=== PATIENT | male | born 1965 | race Caucasian/White ===

== ENCOUNTER 2021-03-30 14:15 | Emergency (ER) | payer OTHER, SELFPAY ==
[2021-03-30 14:21] VITALS: BP 229/99; PULSE 92; RESP 16; TEMP 36.9; O2SAT 96; BMI 29.2
--- NOTE | 2021-03-30 14:34 | ECG_ITS ---
Test Reason : HYPERTENSION Blood Pressure : / mmHG Vent. Rate : 074 BPM Atrial Rate : 074 BPM P-R Int : 146 ms QRS Dur : 096 ms QT Int : 400 ms P-R-T Axes : 067 039 040 degrees QTc Int : 444 ms Normal sinus rhythm Normal ECG No previous ECGs available Referred By: Generic ED Physician Electronically Signed By:Guru Cunha
[2021-03-30 18:41] VITALS: BP 230/97; PULSE 80
--- NOTE | 2021-03-30 19:03 | ED.GENADULT ---
HPI - General Adult General Chief complaint: General Medical Stated complaint: high bp Time Seen by Provider: 03/30/21 19:03 Source: patient Mode of arrival: ambulatory Limitations: no limitations History of Present Illness HPI narrative: Patient history of hypertension not taking med any medication for last 3 years was seen at the urgent care for back pain noticed to have high blood pressure on arrival patient's blood pressure was 229/99 patient denies any headache no chest pain or shortness of breath feels fine otherwise Related Data Previous Rx's Medication Instructions Recorded lisinopril-hydrochlorothiazide 1 tab PO DAILY #30 tab 03/30/21 Allergies Allergy/AdvReac Type Severity Reaction Status Date / Time No Known Allergies Allergy Verified 03/30/21 14:23 Review of Systems Review of Systems: Yes all other systems are reviewed and are negative [facility] Past Medical History Medical History HTN (hypertension) Social History Social History Advance Directives: No Advance Directives Information Provided: Yes Physical Exam Vital Signs: Vital Signs: Last Vital Signs Temp 98.4 F 03/30/21 14:21 Pulse 72 03/30/21 20:47 Resp 16 03/30/21 20:47 BP 180/88 H 03/30/21 20:47 Pulse Ox 99 03/30/21 20:47 Body Mass Index 29.2 Appearance: Alert. Oriented X3. No acute distress. Eyes: PERRLA, No Nystagmus ENT: Pharynx normal. Oral Mucosa moist Neck: Normal inspection. Neck supple. CVS: Normal heart rate and rhythm. Pulses normal. Respiratory: No respiratory distress. Equal air entry bilateral, no wheezing/rales/rhonchi Abdomen: Soft and nontender. Bowel sounds are present, no mass palpable, no CVA tenderness Skin: Skin warm and dry. Normal skin color. Normal skin turgor. Extremities: No lower extremity edema. No calf tenderness Neuro: Oriented X 3. No motor deficit. No sensory deficit.No cerebellar signs , cranial nerves II-XII intact Medical Decision Making MDM Narrative Medical decision making narrative: Patient with history of hypertension not taking medication for last 3 years blood pressure improved to 180/88 after lisinopril discharge patient home advised to follow-up with PCP patient does not have any end-organ damage clinically and labs are stable Lab Data Lab results reviewed: Yes I reviewed the patient's lab results. Result diagrams: 03/30/21 19:23 03/30/21 19:23 Labs: Lab Results 03/30/21 03/30/21 03/30/21 Range/Units 19:23 19:23 19:23 WBC 12.6 H (4.8-10.8) X10*3/uL RBC 4.56 L (4.60-5.80) X10*6/uL Hgb 15.8 (14.0-18.0) g/dl Hct 43.1 (42-52) % MCV 94.5 (80-98) fL MCH 34.6 H (27.0-33.0) pg MCHC 36.7 H (31.0-36.0) g/dl RDW 11.9 (11.0-16.0) % Plt Count 231 (160-400) X10*3/uL MPV 9.6 (9.4-12.4) fL Immature Gran % (Auto) 0.7 H (0.0-0.4) % Neut % (Auto) 74.1 H (45-73) % Lymph % (Auto) 18.6 L (20-40) % [place] % (Auto) 4.5 (2-11) % Eos % (Auto) 1.6 (0-4) % Baso % (Auto) 0.5 (0-2) % Lymph # (Auto) 2.3 (1.2-4.9) X10*3/uL [place] # (Auto) 0.6 (0.1-1.2) X10*3/uL Eos # (Auto) 0.2 (0.0-0.4) X10*3/uL Baso # (Auto) 0.1 (0.0-0.2) X10*3/uL Abs Immat Gran (auto) 0.09 H (0.00-0.03) X10*3/uL Absolute Neuts (auto) 9.3 H (2.0-8.3) X10*3/uL Absolute Nucleated RBC 0.000 (0.0-0.012) X10*3/uL Nucleated RBC % (auto) 0.0 (0.0-0.2) /100WBC Sodium 142 (135-145) mmol/L Potassium 4.0 (3.3-5.1) mmol/L Chloride 104 (96-108) mmol/L Carbon Dioxide 28 (22-29) mmol/L Anion Gap 14 (12-20) BUN 8 L (9-16) mg/dL Creatinine 0.99 (0.5-1.4) mg/dL Estim Creat Clear Calc 78.2 Estimated GFR > 60 Random Glucose 83 (60-115) mg/dL Calcium 9.3 (8.4-10.2) mg/dL Urine Color YELLOW Urine Appearance CLEAR Urine pH 6.5 (5.0-8.0) Ur Specific [place] 1.015 (1.005-1.025) Urine Protein NEG (NEG-TRACE) MG/DL Urine Glucose (UA) NEG (NEG) MG/DL Urine Ketones NEG (NEG) MG/DL Urine Blood NEG (NEG) Urine Nitrite NEG (NEG) Ur Leukocyte Esterase NEG (NEG) Discharge Plan Discharge Clinical Impression: Benign essential hypertension Patient Disposition: Home, Self-Care Instructions: Hypertension (ED) Additional Instructions: Take medication as prescribed Check blood pressure daily should be less than 140/90. Decrease salt intake and follow with PCP Prescriptions: New lisinopril-hydrochlorothiazide 20-12.5 mg tablet 1 tab PO DAILY Qty: 30 RF: 3 Referrals: Tu Christianson MD [Physician] - 1 week (htn) Interventions: ED Discharge Assessment Last Done: 03/30/21 20:47 Discharge Date/Time: 03/30/21 21:05
[2021-03-30 19:14] VITALS: BP 207/98; PULSE 77
[2021-03-30] MEDS: lisinopriL 20 MG TABLET PO (19:14)
[2021-03-30 19:30] LABS: MANUAL DIFF FLAG NO
[2021-03-30 19:37] LABS: Basophils Absolute Auto 0.1 X10*3/uL (0.0-0.2); Basophils Percent Auto 0.5 % (0-2); Eosinophils Absolute Auto 0.2 X10*3/uL (0.0-0.4); Eosinophils Percent Auto 1.6 % (0-4); Hematocrit 43.1 % (42-52); Hemoglobin 15.8 g/dl (14.0-18.0); Imm Gran Abs Auto 0.09 X10*3/uL (0.00-0.03); Imm Gran Pct Auto 0.7 % (0.0-0.4); Lymphocytes Absolute Auto 2.3 X10*3/uL (1.2-4.9); Lymphocytes Percent Auto 18.6 % (20-40); Mean Corpuscular HGB Conc 36.7 g/dl (31.0-36.0); Mean Corpuscular Hemoglobin 34.6 pg (27.0-33.0); Mean Corpuscular Volume 94.5 fL (80-98); Mean Platelet Volume 9.6 fL (9.4-12.4); Monocytes Absolute Auto 0.6 X10*3/uL (0.1-1.2); Monocytes Percent Auto 4.5 % (2-11); Neutrophils Absolute Auto 9.3 X10*3/uL (2.0-8.3); Neutrophils Percent Auto 74.1 % (45-73); Platelet Count 231 X10*3/uL (160-400); Red Blood Count 4.56 X10*6/uL (4.60-5.80); Red Cell Distribution Width 11.9 % (11.0-16.0); White Blood Count 12.6 X10*3/uL (4.8-10.8)
[2021-03-30 19:39] LABS: Glucose Urine UA NEG (NEG); Leukocyte Esterase Urine NEG (NEG); Nitrite Urine NEG (NEG); PH 6.5 (5.0-8.0); Specific Gravity - Urine 1.015 (1.005-1.025); Urine Blood NEG (NEG); Urine Ketones NEG (NEG); Urine Protein NEG (NEG-TRACE)
[2021-03-30 19:40] LABS: Appearance Urine CLEAR; Color Urine YELLOW
[2021-03-30 19:57] LABS: Anion Gap 14 (12-20); Blood Urea Nitrogen 8 mg/dL (9-16); Calcium 9.3 mg/dL (8.4-10.2); Carbon Dioxide 28 mmol/L (22-29); Chloride 104 mmol/L (96-108); Creatinine Clr Calc Pharmacy 78.2; Estimated Glomerular Filt Rate > 60; Glucose Random 83 mg/dL (60-115); Sodium 142 mmol/L (135-145)
[2021-03-30 20:47] VITALS: BP 180/88; PULSE 72; RESP 16; O2SAT 99
== END 2021-03-30 21:05 | disposition home or self-care (01) ==
PROVIDERS: Emergency Provider Internal Medicine
DX: I10 Essential (primary) hypertension (principal); Z91.14 Patient's other noncompliance with medication regimen
CPT/HCPCS: 36415; 80048; 81003; 85025; 93005; 99283; 99284

== ENCOUNTER 2024-01-20 06:32 | Outpatient (REF) | payer BC, SELFPAY ==
[2024-01-20 10:32] LABS: MANUAL DIFF FLAG NO
[2024-01-20 10:41] LABS: Basophils Absolute Auto 0.1 X10*3/uL (0.0-0.2); Basophils Percent Auto 0.7 % (0-2); Eosinophils Absolute Auto 0.2 X10*3/uL (0.0-0.4); Eosinophils Percent Auto 2.3 % (0-4); Hematocrit 49.3 % (42.0-52.0); Hemoglobin 17.4 g/dl (14.0-18.0); Imm Gran Abs Auto 0.05 X10*3/uL (0.00-0.03); Imm Gran Pct Auto 0.5 % (0.0-0.4); Lymphocytes Absolute Auto 2.3 X10*3/uL (1.2-4.9); Lymphocytes Percent Auto 22.3 % (20-40); Mean Corpuscular HGB Conc 35.3 g/dl (31.0-36.0); Mean Corpuscular Hemoglobin 34.2 pg (27.0-33.0); Mean Corpuscular Volume 96.9 fL (80.0-98.0); Mean Platelet Volume 10.1 fL (9.4-12.4); Monocytes Absolute Auto 0.7 X10*3/uL (0.1-1.2); Monocytes Percent Auto 7.2 % (2-11); Neutrophils Absolute Auto 6.8 x10*3/uL (2.0-8.3); Platelet Count 260 X10*3/uL (160-400); Red Blood Count 5.09 X10*6/uL (4.60-5.80); Red Cell Distribution Width 12.2 % (11.0-16.0); White Blood Count 10.2 X10*3/uL (4.8-10.8)
[2024-01-20 11:03] LABS: Alanine Aminotransferase 38 U/L (0-40); Anion Gap 16 (12-20); Aspartate Amino Transferase 39 U/L (5-37); Blood Urea Nitrogen 6 mg/dL (9-16); Calcium 9.3 mg/dL (8.4-10.2); Carbon Dioxide 24 mmol/L (22-29); Chloride 104 mmol/L (96-108); Cholesterol 203 mg/dL (<200); Estimated Glomerular Filt Rate > 60; Glucose Fasting 98 mg/dL (60-99); HDL Cholesterol 50 mg/dL (>40); LDL Cholesterol Calculated 118 mg/dL (<100); Potassium 4.2 mmol/L (3.3-5.1); Sodium 140 mmol/L (135-145); Triglycerides 179 mg/dL (<150); Uric Acid 6.9 mg/dL (3.4-7.0)
== END 2024-01-20 06:33 | disposition home or self-care (01) ==
LOC: HO.HMGCLDS 06:32
PROVIDERS: PCP Internal Medicine; Visit Provider Internal Medicine
DX: Z13.220 Encounter for screening for lipoid disorders (principal); Z13.1 Encounter for screening for diabetes mellitus; M10.9 Gout, unspecified; I10 Essential (primary) hypertension
CPT/HCPCS: 36415; 80048; 80061; 84450; 84460; 84550; 85025

== ENCOUNTER 2024-01-22 07:51 | Outpatient (AMB) | payer BC, SELFPAY ==
[2024-01-22 07:55] VITALS: BP 144/82; PULSE 75; O2SAT 96; BMI 27.8
--- NOTE | 2024-01-22 07:55 | A.OFFPC_ITS ---
Vital Signs 01/22/24 07:55 Height 5 ft 4 in Weight 162 lb BMI 27.8 BP 144/82 H Blood Pressure Location Lt brachial Position Sitting Pulse 75 Pulse Source Pulse Oximeter Pulse Oximetry (%) 96 Oxygen Delivery Method Room Air Intake Visit Reasons: f/u labs and b/p Intake Note: Pt is here today for a follow up visit on BP and labs. Pt states that he has been out of his BP med for 2 weeks now. Allergies No Known Allergies Allergy (Verified 01/22/24 08:20) Medication List - Last Reconciled 01/22/24 by Marcela Doran MD amlodipine 5 mg PO DAILY indomethacin 50 mg PO TID lisinopril 20 mg PO DAILY Tobacco use date assessed: 01/22/24 Dental Screening Dental Screen Date: 01/22/24 Did you have a dental visit in the last 12 months?: Yes Did you have a dental problem in the last 6 months where you did not have access to dental care?: No Was dental information given to patient?: Patient has dentist HPI f/u labs and b/p HPI Details 58-year-old male here today for follow-u p on his hypertension and results of recent fasting labs done. Patient was taking amlodipine and lisinopril but has been out of his medication for the last 2 months. Prescription was sent for 30 tablets last month to [facility] in [place] but patient states that in ever received them. He however has been feeling well with no complaints at present time denies any headache, no chest pain, no lightheadedness. He admits that he has not been eating well, has been eating out , now trying to cut back and cook his own meals. Latest fasting labs showed normal CBC, electrolytes, fasting glucose, but lipids showed elevated triglycerides. He has never had his colon cancer screening, would like to get Cologuard testing instead of colonoscopy. He has had 3 COVID vaccines the last 1 was 12/13/2022 but has not yet had the latest booster, declines Tdap offered on today's visit. Does not get a flu vaccine [facility] Medical History (Updated 01/22/24 @ 08:37 by Marcela Doran MD) Hypertriglyceridemia Essential hypertension Surgical History History of tonsillectomy History of appendectomy Family History Mother Cancer, Onset Age: 54 Father Hypertension Brother Hypertension Social History Housing: Apartment Alcohol intake: current Alcohol intake frequency: a few times a week Alcohol type: beer Patient Tobacco Use Status: Current everyday Tobacco user Cigarettes Per Day: 15 Years Smoked: 40 years Substance Use Type: Marijuana service: No Current occupational status: employed Cognitive needs: No Hearing needs: No Vision needs: No Questionnaire PHQ-9 Over the last 2 weeks, how often have you been bothered by any of the following problems? 1. Little interest or pleasure in doing things: not at all 2. Feeling down, depressed, or hopeless: not at all 3. Trouble falling or staying asleep, or sleeping too much: not at all 4. Feeling tired or having little energy: not at all 5. Poor appetite or overeating: not at all 6. Feeling bad about yourself - or that you are a failure or have let yourself or your family down: not at all 7. Trouble concentrating on things, such as reading the newspaper or watching television: not at all 8. Moving or speaking so slowly that other people could have noticed. Or the opposite - being so fidgety or restless that you have been moving around a lot more than usual: not at all 9. Thoughts that you would be better off or of hurting yourself in some way: not at all Total score: 0 Depression Screening Interpretation: Negative Depression Screening Done: Yes 18129 - PHQ-9 Billing: Yes Source: Developed by Drs. Dorian Arzate, Mayra Fritz, Jack Jorgensen and colleagues, with an educational vitaly from [employer]. Thrive Questionnaire Date Thrive assessed: 01/22/24 I am a: Patient What is your living situation today?: I have a steady place to live Within the past 12 months, did the food you bought not last and you didn't have the money to get more?: Never true Within the past 12 months, did you worry whether your food would run out before you got money to buy more?: Never true Do you have trouble paying for medicines?: No Do you have trouble getting transportation to medical appointments?: No Do you have trouble paying your heating and electricity bill?: No Do you have trouble taking care of your child, family member or friend?: No Do you have trouble with day-to-day activities such as bathing, preparing meals, shopping, managing finances, etc.?: No Are you currently unemployed and looking for a job?: No Are you interested in more education?: No Please select the resources that you would like help with: None THRIVE Score: 0 AUDIT C Alcohol Use Questionnaire (AUDIT-C) 1. How often do you have a drink containing alcohol?: 2-3 times a week 2. How many drinks containing alcohol do you have on a typical day when you are drinking?: 1 or 2 3. How often do you have six or more drinks on one occasion?: Never Total Score: 3 THOMAS-7 AMB Questionnaire THOMAS-7 Date THOMAS - 7 assessed: 01/22/24 Feeling nervous, anxious, or on edge: 0 = Not at all Not being able to stop or control worryin = Not at all Worrying too much about different things: 0 = Not at all Trouble relaxin = Not at all Being so restless that it is hard to sit still: 0 = Not at all Becoming easily annoyed or irritable: 0 = Not at all Feeling afraid as if something awful might happen: 0 = Not at all Total THOMAS-7 score (0-4 normal; 5-9 mild; 10-14 moderate; 15-21 severe): 0 Source: Developed by Drs. Dorian Arzate, Mayra Fritz, Jack Jorgensen and colleagues, with an educational vitaly from [employer]. THOMAS-7 Assessment Billing THOMAS-7 Assessment Tool: THOMAS-7 Assessment 68825 Review of Systems Const Reports no additional complaints Eyes Reports no additional complaints ENT Reports no additional complaints Card Denies chest pain, Denies irregular heart rhythm, Denies lightheadedness and Denies dyspnea Resp Denies cough and Denies dyspnea GI Reports no additional complaints Reports no additional complaints Musc Denies back pain, Denies myalgias, Denies arthralgias, Denies joint swelling, Denies muscle cramps and Denies muscle weakness Skin/Breast Denies rash Neuro Reports no additional complaints Psych Reports no additional complaints Endo Reports no additional complaints Munir/Lymph Reports no additional complaints Aller/Immun Reports no additional complaints Physical exam (Primary Care) Vital Signs: Last Vital Signs Pulse 75 01/22/24 07:55 BP 144/82 H 01/22/24 07:55 Pulse Ox 96 01/22/24 07:55 Oxygen Delivery Method Room Air 01/22/24 07:55 BMI result Body Mass Index 27.8 Tobacco/Smoking Status: Tobacco use Status Tobacco use date assessed 01/22/24 01/22/24 08:00 Patient Tobacco Use Status Current everyday Tobacco 01/22/24 08:00 PHQ-9: PHQ-9 Score PHQ-9: Total score 0 01/22/24 08:00 Depression Screening Interpretation: Negative Thrive Assessment: Date of Thrive Assessment Date Thrive assessed 01/22/24 01/22/24 08:00 Const General: cooperative, no acute distress and alert Orientation/consciousness: patient oriented x3 Limitations: no limitations HENMT Head: Yes normocephalic General nose exam: Normal external nose present Face and sinus: Yes face symmetric Mouth: Normal oral and palatal mucosa present and moist mucous membranes Eyes General: appearance normal, both eyes and all related structures Neck Neck: Yes full ROM and Yes no lymphadenopathy Thyroid: Thyroid normal Resp Effort & Inspection: normal respiratory effort and able to speak in complete sentences Auscultation: clear to auscultation bilaterally Cardio Rate: regular rate Rhythm: regular rhythm Heart sounds: S1 normal heart sound present and S2 normal heart sound present Neuro General: patient oriented x3, gait normal, moves all extremities, no focal motor deficits and CN's II-XI intact bilaterally Extrem General: Yes normal to inspection, Yes full ROM, Yes no pedal edema and Yes normal gait Psych Appearance: grossly normal and well kempt Mental Status: mental status grossly normal Speech and movement: Normal speech and movement present Affect: normal affect Attitude: cooperative Results Reviewed Results Reviewed: angelica: Sherif Wharton Age/Sex: 58/M : 1965 Unit#: [id number] Attend Dr: Marcela Doran MD Re01/20/24 Status: DEP REF Location: [facility] Disch: SPEC : [id number] TANG: 01/20/24-636 STATUS: COMP REQ : [id number] RECD: 01/20/24-[address]: Marcela Doran MD COMP: 01/20/24 ENTERED: 01/20/[address] [facility] [address]: ORDERED: CBC Auto Diff Test Result Flag Reference WBC 10.2 4.8-10.8 X10*3/uL RBC 5.09 4.60-5.80 X10*6/uL HGB 17.4 14.0-18.0 g/dl HCT 49.3 42.0-52.0 % MCV 96.9 80.0-98.0 fL MCH 34.2 H 27.0-33.0 pg MCHC 35.3 31.0-36.0 g/dl RDW 12.2 11.0-16.0 % PLT 260 160-400 X10*3/uL MPV 10.1 9.4-12.4 fL Neut Pct Auto 67.0 45-73 % ImGran Pct Auto 0.5 H 0.0-0.4 % Lymp Pct Auto 22.3 20-40 % [place] Pct Auto 7.2 2-11 % Eos Pct Auto 2.3 0-4 % Baso Pct Auto 0.7 0-2 % NRBC Pct Auto 0.0 0.0-0.2 /100WBC ANC Neut Abs # 6.8 2.0-8.3 x10*3/uL Im[place]an Abs Auto 0.05 H 0.00-0.03 X10*3/uL Lymph Abs Auto 2.3 1.2-4.9 X10*3/uL [place] Abs Auto 0.7 0.1-1.2 X10*3/uL Eos Abs Auto 0.2 0.0-0.4 X10*3/uL Baso Abs Auto 0.1 0.0-0.2 X10*3/uL NRBC Abs Auto 0.000 0.0-0.012 X10*3/uL Name: Sherif Wharton Age/Sex: 58/M : 1965 Unit#: [id number] Attend Dr: Marcela Doran MD Re01/20/24 Status: DEP REF Location: [facility] Disch: SPEC : [id number] TANG: 01/20/24 STATUS: COMP REQ : [id number] RECD: 01/20/[address] [facility] [address]: Marcela Doran MD COMP: 01/20/24 ENTERED: 01/20/[address] [facility] [address]: ORDERED: Met Prof Fast, Uric, AST, ALT, Lipid Panel Test Result Flag Reference Sodium 140 135-145 mmol/L Potassium 4.2 3.3-5.1 mmol/L CL 104 96-108 mmol/L CO2 24 22-29 mmol/L Gap 16 12-20 BUN 6 L 9-16 mg/dL Creat 1.07 0.5-1.4 mg/dL EGFR > 60 NOTE: For -[place] individuals, multiply the result by 1.210. Chronic Kidney Disease: Estimated GFR < 60 mL/min/1.73m2 Severe Kidney Disease: Estimated GFR < 15 mL/m in/1.73m2 FBS 98 60-99 mg/dL Uric Acid 6.9 3.4-7.0 mg/dL CA 9.3 8.4-10.2 mg/dL AST (GOT) 39 H 5-37 U/L ALT (GPT) 38 0-40 U/L Triglyceride 179 H <150 mg/dL Desirable Triglyceride: less than 150 mg/dL Borderline High Triglyceride 150-199 mg/dL High Triglyceride: 200-499 mg/dL Very High Triglyceride: greater than or equal to 5OO mg/dL Cholesterol 203 H <200 mg/dL Desirable Cholesterol: less than 200 mg/dL Borderline High Cholesterol: 200-239 mg/dL High Cholesterol: greater than 239 mg/dL LDL Calculated 118 H <100 mg/dL Desirable LDL: less than 100 mg/dL Near Optimal/Above Optimal LDL: 110-129 mg/dL Borderline High LDL: 130-159 mg/dL High LDL: 160-189 mg/dL Very High LDL: greater than or equal to 190 mg/dL HDL 50 >40 mg/dL Desirable HDL: greater than 40 mg/dL Assessment and Plan Assessment & Plan (1) Essential hypertension: Code(s): I10 - Essential (primary) hypertension Plan: Patient has been out of his blood pressure meds for the last 2 weeks, refilled his lisinopril and amlodipine at same dose, return to the clinic in 1-2 weeks to check blood pressure with nurse navigator. And will see him back for his physical later this year continue with low-salt diet and get regular exercise (2) Hypertriglyceridemia: Code(s): E78.1 - Pure hyperglyceridemia Plan: Reviewed recent fasting lipid profile with patient with elevated triglycerides. . Reinforced adherence to a low-cholesterol diet and regular exercise, at least 30 minutes 3 to 4 times a week. Advised patient to make healthy food choices, eat more fruits, vegetables, whole grains, wild caught fish and low- fat dairy. Limit amount of meat and fried or fatty food products, as well as processed foods and fast foods. (3) Colon cancer screening: Code(s): Z12.11 - Encounter for screening for malignant neoplasm of colon Plan: Cologuard screening ordered patient understands that if this comes back positive that he will need a colonoscopy otherwise repeat in 3 years Orders: Referrals Cologuard Test Z12.11 - Encounter for screening for malignant neoplasm of colon, Z12.12 - Encounter for screening for malignant neoplasm of rectum Medications: Refilled lisinopril 20 mg PO DAILY 90 tabs 3RF I10 - Essential (primary) hypertension amlodipine 5 mg PO DAILY 90 tabs 3RF I10 - Essential (primary) hypertension Coding Level of Care Code Est Pt Level 4 (54909) Diagnoses Essential hypertension I10 Hypertriglyceridemia E78.1 Colon cancer screening Z12.11 Additional Codes THOMAS-7 Assessment Billing - THOMAS-7 Assessment Tool: THOMAS-7 Assessment 25372 ([id number])
== END 2024-01-22 11:34 | disposition home or self-care (01) ==
PROVIDERS: PCP Internal Medicine; Visit Provider Internal Medicine
DX: I10 Essential (primary) hypertension (principal); E78.1 Pure hyperglyceridemia; Z12.11 Encounter for screening for malignant neoplasm of colon
CPT/HCPCS: 99214

== ENCOUNTER 2024-06-06 11:15 | Outpatient (AMB) | payer BC, SELFPAY ==
[2024-06-06 11:20] VITALS: BP 132/78; PULSE 78; O2SAT 98
--- NOTE | 2024-06-06 11:20 | AM.OFFWIN_ITS ---
Intake Vital Signs 06/06/24 11:20 Height 5 ft 4 in BP 132/78 Blood Pressure Location Rt brachial Position Sitting Pulse 78 Pulse Source Pulse Oximeter Pulse Oximetry (%) 98 Oxygen Delivery Method Room Air Intake Visit Reasons: EP WC RT wrist injury 4 wks ago (Apr) Not reported Intake Note: patient is here for right wrist injury, happened 4 weeks ago at work not reported Patient Tobacco Use Status: Current everyday Tobacco user Allergies No Known Allergies Allergy (Verified 06/06/24 11:24) Do you need a note to return to daycare/school/sports/work: No HPI HPI Comments History of Present Illness Details He presents to office with wrist pain Injured it 4 weeks ago at work; pulling empty barrel and twisred wristing R wrist; R hand dominant Constant dull ache with burn Radiation from fingers to shoulders He tried Advil without relief 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 No other complaints [facility] Medical History (Updated 06/06/24 @ 11:36 by Sravani Bliss PA-C) Hypertriglyceridemia Essential hypertension Surgical History History of tonsillectomy History of appendectomy Family History Mother Cancer, Onset Age: 54 Father Hypertension Brother Hypertension Social History Housing: Apartment Alcohol intake: current Alcohol intake frequency: a few times a week Alcohol type: beer Patient Tobacco Use Status: Current everyday Tobacco user Cigarettes Per Day: 15 Years Smoked: 40 years Substance Use Type: Marijuana service: No Current occupational status: employed Cognitive needs: No Hearing needs: No Vision needs: No Review of Systems Const Denies chills and Denies fever(s) Card Denies chest pain Resp Denies cough Musc Reports arthralgias Skin/Breast Denies rash and Denies wounds Neuro Denies paresthesias Physical Exam Vital Signs: Last Vital Signs Pulse 78 06/06/24 11:20 BP 132/78 06/06/24 11:20 Pulse Ox 98 06/06/24 11:20 Oxygen Delivery Method Room Air 06/06/24 11:20 General: Non-toxic, NAD. Speaking full sentences. Skin: Warm dry throughout. No obvious R wrist/RUE edema, ecchymosis or rashes Eye: EOMI Respiratory: No respiratory distress Cardiac: Radial pulse intact RUE MSK: No ttp R shoulder, elbow or digits on hand. + point tenderness of ulnar styloid. Pain with pronation and supination R forearm. No snuffbox tenderness. 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 Neurology: A/O. No aphasia or facial droop. Gait without abnormality Psych: Good mood and affect Assessment & Plan Assessment & Plan (1) Pain of ulnar side of wrist: Code(s): M25.539 - Pain in unspecified wrist Plan: Patient seen and evaluated. Xray R wrist ordered: I viewed as no acute abnormality aside from minimal arthritis Given silvano wrap Ice, rest, elevate, Tylenol/Motrin F/U with workman comp Patient gave verbal understanding and had no additional questions or concerns at time of discharge All questions answered Orders: Orders XR wrist RT min 3V Today M25.539 - Pain in unspecified wrist Coding Level of Care Code Est Pt Level 3 (15066) Diagnoses Pain of ulnar side of wrist M25.539
== END 2024-06-06 13:33 | disposition home or self-care (01) ==
PROVIDERS: PCP Internal Medicine; Visit Provider Physician Assistant
DX: M25.539 Pain in unspecified wrist (principal)

== ENCOUNTER → 2024-06-06 11:15 | Outpatient (BNVA) | payer OTHER, BC, SELFPAY | PROVIDERS: PCP Internal Medicine | DX: M25.531 Pain in right wrist (principal) ==

== ENCOUNTER 2024-06-06 11:38 | Outpatient (REF) | payer BC, SELFPAY ==
--- NOTE | ~2024-06-06 | XR_ITS ---
EXAMINATION: XR WRIST, RIGHT CLINICAL INFORMATION: Pain in right wrist COMPARISON: None available. TECHNIQUE: PA, lateral, and oblique views of the right wrist. FINDINGS: The bones and soft tissues are normal. No fracture. Alignment is anatomic with normal joint spaces. No erosions or abnormal soft tissue calcifications. XR/XR wrist RT min 3V IMPRESSION: Normal right wrist. Electronically signed by: Mandeep Pacheco MD 06/06/2024 04:52 PM EDT
== END 2024-06-06 11:39 | disposition home or self-care (01) ==
LOC: HO.HMGCX 11:38
PROVIDERS: PCP Internal Medicine; Visit Provider Physician Assistant
DX: M25.531 Pain in right wrist (principal)
CPT/HCPCS: 73110

== ENCOUNTER 2025-02-10 09:06 | Outpatient (REF) | payer BC, SELFPAY ==
[2025-02-10 10:57] LABS: Alanine Aminotransferase 21 U/L (0-40); Anion Gap 13 (12-20); Aspartate Amino Transferase 24 U/L (5-37); Blood Urea Nitrogen 10 mg/dL (9-16); Calcium 9.3 mg/dL (8.4-10.2); Carbon Dioxide 26 mmol/L (22-29); Chloride 103 mmol/L (96-108); Cholesterol 226 mg/dL (<200); Estimated Glomerular Filt Rate > 60; Glucose Fasting 93 mg/dL (60-99); HDL Cholesterol 54 mg/dL (>40); LDL Cholesterol Calculated 154 mg/dL (<100); Potassium 3.9 mmol/L (3.3-5.1); Sodium 138 mmol/L (135-145); Triglycerides 91 mg/dL (<150)
== END 2025-02-10 09:07 | disposition home or self-care (01) ==
LOC: HO.HMGCLDS 09:06
PROVIDERS: PCP Internal Medicine; Visit Provider Internal Medicine
DX: I10 Essential (primary) hypertension (principal); E78.1 Pure hyperglyceridemia
CPT/HCPCS: 36415; 80048; 80061; 84450; 84460

== ENCOUNTER 2025-02-12 11:22 | Outpatient (AMB) | payer BC, SELFPAY ==
--- NOTE | 2025-02-12 11:38 | MHC.PC.OV ---
Vital Signs 02/12/25 11:39 02/12/25 11:49 Height 5 ft 4 in 5 ft 4 in Weight 154 lb 4 oz BMI 26.5 BP 132/76 Blood Pressure Location Rt radial Position Sitting Respiration 20 Pulse 67 Temp 98.1 F Temp Source Oral Pulse Oximetry (%) 98 Oxygen Delivery Method Room Air Intake Visit Reasons: PE Intake Note: Pt is here today for his PE Allergies No Known Allergies Allergy (Verified 02/12/25 12:09) Medication List - Last Reconciled 02/12/25 by Marcela Doran MD amlodipine 5 mg PO DAILY lisinopril 20 mg PO DAILY Tobacco use date assessed: 02/12/25 Dental Screening Dental Screen Date: 02/12/25 Did you have a dental visit in the last 12 months?: No Did you have a dental problem in the last 6 months where you did not have access to dental care?: No Was dental information given to patient?: Patient has dentist HPI PE HPI Details 60-year-old male with history of hypertension, here today for his physical exam. He is currently taking amlodipine 5 mg daily and lisinopril 20 mg daily for control of blood pressure which is within normal limits. He has smoke cigarettes at least half a pack a day, and would like help quitting smoking. Has never tried any smoking cessation aids in the past. Overdue for his colon cancer screening [facility] Medical History (Updated 02/13/25 @ 02:23 by Marcela Doran MD) Mixed dyslipidemia Cigarette smoker motivated to quit Essential hypertension Surgical History History of tonsillectomy History of appendectomy Family History Mother Cancer, Onset Age: 54 Father Hypertension Brother Hypertension Social History Housing: Apartment Alcohol intake: current Alcohol intake frequency: a few times a week Alcohol type: beer Patient Tobacco Use Status: Current everyday Tobacco user Cigarette Packs Per Day: 1 Cigarettes Per Day: 15 Years Smoked: 40 years e-Cigarette/Vaping Use: Never Used Substance Use Type: Marijuana service: No Current occupational status: employed Cognitive needs: No Hearing needs: No Vision needs: No Questionnaire PHQ-9 Over the last 2 weeks, how often have you been bothered by any of the following problems? 1. Little interest or pleasure in doing things: not at all 2. Feeling down, depressed, or hopeless: not at all 3. Trouble falling or staying asleep, or sleeping too much: not at all 4. Feeling tired or having little energy: not at all 5. Poor appetite or overeating: not at all 6. Feeling bad about yourself - or that you are a failure or have let yourself or your family down: not at all 7. Trouble concentrating on things, such as reading the newspaper or watching television: not at all 8. Moving or speaking so slowly that other people could have noticed. Or the opposite - being so fidgety or restless that you have been moving around a lot more than usual: not at all 9. Thoughts that you would be better off or of hurting yourself in some way: not at all Total score: 0 Depression Screening Interpretation: Negative Depression Screening Done: Yes 42254 - PHQ-9 Billing: Yes Source: Developed by Drs. Dorian Arzate, Mayra Fritz, Jack Jorgensen and colleagues, with an educational vitaly from [employer]. Thrive Questionnaire Date Thrive assessed: 01/22/24 I am a: Patient What is your living situation today?: I have a steady place to live Within the past 12 months, did the food you bought not last and you didn't have the money to get more?: Never true Within the past 12 months, did you worry whether your food would run out before you got money to buy more?: Never true Do you have trouble paying for medicines?: No Do you have trouble getting transportation to medical appointments?: No Do you have trouble paying your heating and electricity bill?: No Do you have trouble taking care of your child, family member or friend?: No Do you have trouble with day-to-day activities such as bathing, preparing meals, shopping, managing finances, etc.?: No Are you currently unemployed and looking for a job?: No Are you interested in more education?: No Please select the resources that you would like help with: None Currently or been in a relationship where the following occur: No concerns reported THRIVE Score: 0 AUDIT C Alcohol Use Questionnaire (AUDIT-C) 1. How often do you have a drink containing alcohol?: 2-3 times a week 2. How many drinks containing alcohol do you have on a typical day when you are drinking?: 3 or 4 3. How often do you have six or more drinks on one occasion?: Less than monthly Total Score: 5 THOMAS-7 AMB Questionnaire THOMAS-7 Date THOMAS - 7 assessed: 01/22/24 Feeling nervous, anxious, or on edge: 0 = Not at all Not being able to stop or control worryin = Not at all Worrying too much about different things: 0 = Not at all Trouble relaxin = Not at all Being so restless that it is hard to sit still: 0 = Not at all Becoming easily annoyed or irritable: 0 = Not at all Feeling afraid as if something awful might happen: 0 = Not at all Total THOMAS-7 score (0-4 normal; 5-9 mild; 10-14 moderate; 15-21 severe): 0 Source: Developed by Drs. Dorian Arzate, Mayra Fritz, Jack Jorgensen and colleagues, with an educational vitaly from [employer]. THOMAS-7 Assessment Billing THOMAS-7 Assessment Tool: THOMAS-7 Assessment 48721 Review of Systems Const Reports no additional complaints Eyes Reports blurry vision (With reading) ENT Reports no additional complaints Card Denies chest pain, Denies irregular heart rhythm, Denies lightheadedness and Denies dyspnea Resp Denies cough and Denies dyspnea GI Reports no additional complaints Reports no additional complaints Musc Denies back pain, Denies myalgias, Denies arthralgias, Denies joint swelling, Denies muscle cramps and Denies muscle weakness Skin/Breast Denies rash Neuro Reports no additional complaints Psych Reports no additional complaints Endo Reports no additional complaints Munir/Lymph Reports no additional complaints Aller/Immun Reports no additional complaints Physical exam (Primary Care) Vital Signs: Last Vital Signs Temp 98.1 F 02/12/25 11:49 Pulse 67 02/12/25 11:49 Resp 20 02/12/25 11:49 BP 132/76 02/12/25 11:49 Pulse Ox 98 02/12/25 11:49 Oxygen Delivery Method Room Air 02/12/25 11:49 BMI result Body Mass Index 26.5 Tobacco/Smoking Status: Tobacco use Status Tobacco use date assessed 02/12/25 02/12/25 11:40 Patient Tobacco Use Status Current everyday Tobacco 02/12/25 11:40 e-Cigarette/Vaping Use Never Used 02/12/25 11:55 Are you ready to quit: Yes Tobacco cessation counseling provided: Yes Items discussed: Other (Started on varenicline) Number of minutes spent counselin PHQ-9: PHQ-9 Score PHQ-9: Total score 0 02/12/25 12:09 Depression Screening Interpretation: Negative Thrive Assessment: Date of Thrive Assessment Date Thrive assessed 01/22/24 02/12/25 11:40 Currently or been in a relationship where the following occur: No concerns reported Advance Care Planning discussion: Completed/Scanned Date of discussion: 02/12/25 Who was present: Patient Forms completed: Health Care Proxy Time spent: 16-45 minutes Actual minutes spent: 2 Const General: cooperative, no acute distress and alert Orientation/consciousness: patient oriented x3 HENMT Head: Yes normocephalic General nose exam: Normal external nose present Face and sinus: Yes face symmetric Mouth: Normal oral and palatal mucosa present and moist mucous membranes Eyes General: appearance normal, both eyes and all related structures Neck Neck: Yes full ROM and Yes no lymphadenopathy Thyroid: Thyroid normal Chest Chest palpation & inspection: normal inspection of the chest Resp Effort & Inspection: normal respiratory effort and able to speak in complete sentences Auscultation: clear to auscultation bilaterally Cardio Rate: regular rate Rhythm: regular rhythm Heart sounds: S1 normal heart sound present and S2 normal heart sound present GI Palpation (GI): Soft to palpation, nontender, no guarding and no masses Auscultation: normal bowel sounds General: Yes no CVA tenderness Male General Exam: Yes normal external exam Back/Spine/Pelvis Back: no CVA tenderness and No back tenderness Skin General skin exam: no rashes or lesions noted Neuro General: patient oriented x3, gait normal, moves all extremities, no focal motor deficits and CN's II-XI intact bilaterally Extrem General: Yes normal to inspection, Yes full ROM, Yes no pedal edema and Yes normal gait Psych Appearance: grossly normal and well kempt Mental Status: mental status grossly normal Speech and movement: Normal speech and movement present Affect: normal affect Results Reviewed Results Reviewed: Name: Sherif Wharton Age/Sex: 60/M : 1965 Unit#: [id number] Attend Dr: Marcela Doran MD Re02/10/25 Status: DEP [facility]F [facility] Disch: SPEC : [id number] TANG: 02/10/25 STATUS: COMP REQ : [id number] RECD: 02/10/25-[address]: Marcela Doran MD COMP: 02/10/25 ENTERED: 02/10/[address]: ORDERED: Met Prof Fast, AST, ALT, Lipid Panel Test Result Flag Reference Sodium 138 135-145 mmol/L Potassium 3.9 3.3-5.1 mmol/L CL 103 96-108 mmol/L CO2 26 22-29 mmol/L Gap 13 12-20 BUN 10 9-16 mg/dL Creat 0.86 0.5-1.4 mg/dL eGFR > 60 Chronic Kidney Disease: Estimated GFR < 60 mL/min/1.73m2 Severe Kidney Disease: Estimated GFR < 15 mL/min/1.73m2 FBS 93 60-99 mg/dL CA 9.3 8.4-10.2 mg/dL AST (GOT) 24 5-37 U/L ALT (GPT) 21 0-40 U/L Triglyceride 91 <150 mg/dL Desirable Triglyceride: less than 150 mg/dL Borderline High Triglyceride 150-199 mg/dL High Triglyceride: 200-499 mg/dL Very High Triglyceride: greater than or equal to 5OO mg/dL Cholesterol 226 H <200 mg/dL Desirable Cholesterol: less than 200 mg/dL Borderline High Cholesterol: 200-239 mg/dL High Cholesterol: greater than 239 mg/dL LDL Calculated 154 H <100 mg/dL Desirable LDL: less than 100 mg/dL Near Optimal/Above Optimal LDL: 110-129 mg/dL Borderline High LDL: 130-159 mg/dL High LDL: 160-189 mg/dL Very High LDL: greater than or equal to 190 mg/dL HDL 54 >40 mg/dL Desirable HDL: greater than 40 mg/dL Note: This HDL assay may give artificially low results in patients with liver disease. Coding Level of Care Code Est Pt Prev Care 40-64y(34889) Diagnoses Annual visit for general adult medical examination with abnormal findings Z00.01 Cigarette smoker motivated to quit F17.210 Essential hypertension I10 Advanced directives, counseling/discussion Z71.89 Mixed dyslipidemia E78.2 Additional Codes PHQ-9 - 90201 - PHQ-9 Billing: Yes ([id number]) THOMAS-7 Assessment Billing - THOMAS-7 Assessment Tool: THOMAS-7 Assessment 30939 ([id number]) Vital Signs *Quality* - Advance Care Planning discussion: Completed/Scanned ([id number]) Vital Signs *Quality* - Time spent: 16-45 minutes ([id number]) Assessment & Plan Assessment & Plan (1) Annual visit for general adult medical examination with abnormal findings: Code(s): Z00.01 - Encounter for general adult medical examination with abnormal findings Plan: Will check appropriate labs. Recommended dental visit every 6 months and regular eye exams, at least every 2 years. Take adequate calcium in diet and vitamin-D 3 at 2000 IU per cap once a day, in addition to weight-bearing exercises to help maintain good muscle tone and weight control. Instructed to do self testicular exam check for any mass. Declined getting further COVID booster were flu shot, before his tetanus diphtheria booster, and recommended to get the shingles vaccine, which is given at the pharmacy. Cologuard test ordered for colon cancer screening. (2) Cigarette smoker motivated to quit: Code(s): F17.210 - Nicotine dependence, cigarettes, uncomplicated Category: Social Hx Plan: Started on varenicline starter pack, patient instructed on how to take the medication, always with a glass of water and with a meal, possible side effects discussed with patient which may include some nausea abdominal cramping alteration in bowel habits and experience weird dreams when taking the medication. Advised that he she needed needs to be on this for at least 3 months to help prevent relapse. Schedule follow-up in 4 weeks after starting the medication (3) Essential hypertension: Code(s): I10 - Essential (primary) hypertension Category: Medical Plan: Blood pressure at goal of less than 130/80. Continue with current medication. Reinforced importance of following a low sodium diet, getting regular exercise, and lowering stress levels. (4) Advanced directives, counseling/discussion: Code(s): Z71.89 - Other specified counseling Plan: Initiated the conversation about Advanced Directives. Advanced Directives help patients prepare for current and future decisions about their medical treatment and place of care. Discussed with patient that it is a process where a patients current condition and prognosis are reviewed, their wishes for information regarding their illness are elicited, and likely medical dilemmas are presented and options discussed. Healthcare proxy form completed today. The form can be amended as needed, reviewed yearly and make changes as needed (5) Mixed dyslipidemia: Code(s): E78.2 - Mixed hyperlipidemia Category: Medical Plan: Discuss recent fasting lab results with patient which showed improvement in triglyceride levels but LDL cholesterol is higher than last check. Reinforced importance of following a low-cholesterol diet and getting regular exercise. Will repeat another fasting lipid panel in six-month Orders: Referrals Cologuard Test Z12.11 - Encounter for screening for malignant neoplasm of colon, Z12.12 - Encounter for screening for malignant neoplasm of rectum Medications: New varenicline tartrate PO PER PKG DIR 53 ea 0RF F17.210 - Nicotine dependence, cigarettes, uncomplicated
[2025-02-12 11:49] VITALS: BP 132/76; PULSE 67; RESP 20; TEMP 36.7; O2SAT 98; BMI 26.5
== END 2025-02-12 12:31 | disposition home or self-care (01) ==
LOC: HO.HMCC 11:23
PROVIDERS: PCP Internal Medicine; Visit Provider Internal Medicine
DX: Z00.01 Encounter for general adult medical examination with abnormal findings (principal); F17.210 Nicotine dependence, cigarettes, uncomplicated; I10 Essential (primary) hypertension; Z71.89 Other specified counseling; E78.2 Mixed hyperlipidemia; Z00.00 Encounter for general adult medical examination without abnormal findings

== ENCOUNTER → 2025-02-12 11:22 | Outpatient (BNVA) | payer BC, SELFPAY | PROVIDERS: PCP Internal Medicine; Visit Provider Internal Medicine | DX: Z00.01 Encounter for general adult medical examination with abnormal findings (principal); I10 Essential (primary) hypertension; E78.2 Mixed hyperlipidemia; F17.210 Nicotine dependence, cigarettes, uncomplicated; Z71.89 Other specified counseling; Z13.31 Encounter for screening for depression | CPT/HCPCS: 96127 ==

== ENCOUNTER → 2025-04-30 12:17 | Outpatient (BNVA) | payer OTHER, SELFPAY | PROVIDERS: PCP Internal Medicine; Visit Provider Physician Assistant | DX: T63.441A Toxic effect of venom of bees, accidental (unintentional), initial encounter (principal); R60.9 Edema, unspecified; Z02.79 Encounter for issue of other medical certificate | CPT/HCPCS: 99203 ==